=== PATIENT | male | born 1945 | race African-American/Black ===

== ENCOUNTER 2021-07-20 12:52 | Outpatient (CLI) | payer MEDICARE | END 2021-07-20 12:53 | disposition home or self-care (01) | LOC: BICCT 12:52 | PROVIDERS: ATTEND Neurological Surgery | DX: S06.5X0A Traumatic subdural hemorrhage without loss of consciousness, initial encounter (principal); R22.0 Localized swelling, mass and lump, head | CPT/HCPCS: 70450 ==

== ENCOUNTER 2021-09-01 14:15 | Outpatient (CLI) | payer MEDICARE | END 2021-09-01 14:16 | disposition home or self-care (01) | LOC: BICCT 14:15 | PROVIDERS: ATTEND Neurological Surgery | DX: S06.5X0A Traumatic subdural hemorrhage without loss of consciousness, initial encounter (principal); J34.89 Other specified disorders of nose and nasal sinuses | CPT/HCPCS: 70450 ==